=== PATIENT | male | born 1960 ===

== ENCOUNTER 2021-08-15 09:08 | Emergency (ER) | payer MEDICAID, OTHER ==
[2021-08-15 09:15] VITALS: BP 132/83
[2021-08-15] MEDS ORDERED: ACETAMINOPHEN 500 MG TAB PO STA (11:12)
[2021-08-15] MEDS ORDERED: KETOROLAC 60 MG/2 ML INJ IM ONE (11:12)
--- NOTE | 2021-08-15 11:16 | Emergency Department Report ---
ED General Adult HPI - General Chief complaint: Back Pain/Injury Stated complaint: back pain, muscle cramps Time Seen by Provider: 08/15/21 10:39 Source: patient Mode of arrival: Ambulatory Limitations: No Limitations - History of Present Illness Initial comments: 60-year-old male patient with history of diabetes and stroke 2018 presents with complaints of acute on chronic back pain for the past few days. Patient is currently following with a waste specialist and brought documentation that showed low back nerve compression via MRI performed 07/31/21. Patient states his next appointment is on the of this month. He is currently on pregabalin and states it does not help with his pain. He rates his pain as a 9/10 in severity and states it worsens with movement and walking. He denies any loss of bladder/bowel control, numbness/tingling/weakness in his limbs, history of cancer, fever, or steroid use. He also denies any new injuries - Related Data Allergies Allergy/AdvReac Type Severity Reaction Status Date / Time No Known Allergies Allergy Unverified 08/15/21 09:10 ED Review of Systems ROS: Stated complaint: back pain, muscle cramps Other details as noted in HPI Constitutional: denies: chills, diaphoresis, fever, malaise, weakness Gastrointestinal: denies: abdominal pain, hematochezia Genitourinary: denies: hematuria Musculoskeletal: back pain Neurological: denies: weakness, numbness, paresthesias, abnormal gait ED Physical Exam - General Limitations: No Limitations General appearance: alert, in no apparent distress - Head Head exam: Present: atraumatic, normocephalic - Eye Eye exam: Present: normal appearance. Absent: scleral icterus - Respiratory Respiratory exam: Absent: respiratory distress - Cardiovascular Cardiovascular Exam: Present: regular rate - Back Exam Back exam: Present: full ROM, paraspinal tenderness (Lower lumbar), vertebral tenderness (Lower lumbar, no obvious deformities noted) - Expanded Back Exam Expanded Back exam: Absent: saddle anesthesia Back exam: Sciatic Notch Tenderness: Left, Right - Neurological Exam Neurological exam: Present: alert, oriented X3, normal gait - Psychiatric Psychiatric exam: Present: normal affect, normal mood - Skin Skin exam: Present: warm, dry, intact, normal color. Absent: rash ED Course Vital Signs 08/15/21 09:14 Temperature 98.5 F Pulse Rate 78 Respiratory 16 Rate Blood Pressure 132/83 O2 Sat by Pulse 90 Oximetry ED Medical Decision Making - Medical Decision Making 60-year-old male patient with history of diabetes and stroke 2018 presents with complaints of acute on chronic back pain for the past few days. Patient is currently following with a waste specialist and brought documentation that showed low back nerve compression via MRI performed 07/31/21. Patient states his next appointment is on the of this month. He is currently on pregabalin and states it does not help with his pain. He rates his pain as a 9/10 in severity and states it worsens with movement and walking. He denies any loss of bladder/bowel control, numbness/tingling/weakness in his limbs, history of cancer, fever, or steroid use. He also denies any new injuries I was informed by the front triage nurse and missile technician that the patient eloped prior to reevaluation and disposition. Patient's pulse ox was not reassessed prior to elopement Critical care attestation.: If time is entered above; I have spent that time in minutes in the direct care of this critically ill patient, excluding procedure time. ED Disposition Clinical Impression: Acute exacerbation of chronic low back pain Disposition: 07 LEFT AWOL/ELOPED Is pt being admited?: No Condition: Stable
== END 2021-08-15 12:00 | disposition left against medical advice (07) ==
LOC: ED 09:08
DX: M54.50 Low back pain, unspecified (principal); G89.29 Other chronic pain
CPT/HCPCS: 96372; 99281; J1885